=== PATIENT | female | born 1970 | race Caucasian/White ===

== ENCOUNTER 2017-03-03 17:13 | Emergency (ER) | payer OTHER ==
[~2017-03-03] VITALS: Ht 175.3 cm; Wt 89.8 kg
[~2017-03-03 17:13] MED LIST: ATOR20TA PO; CITA40TA13 PO; COZ50 PO; TYL3
[2017-03-03 17:38] VITALS: BP 110/74
--- NOTE | 2017-03-03 18:20 | NUR ---
PATIENT PRESENTS TO ED WITH C/O LOWER ABDOMINAL PAIN 3/10 X 3 WKS WITH NAUSEA AND DIARRHEA; DENIES VOMITING HX; HTN, DEPRESSION, L4,L5 COMPRESSION FX RX; LOSARTAAN ----; SKIN IS PINK/WARM/DRY; AAOX4 WITH EVEN AND STEADY GAIT; LUNGS CLEAR BL; HR EVEN AND REGULAR; PT DENIES ANY FEVER, CP, SOB, OR COUGH AT THIS TIME; PATIENT STATES PAIN OF 3/10 AT THIS TIME; VSS; PATIENT POSITIONED FOR COMFORT; HOB ELEVATED; BEDRAILS UP X2; BED DOWN. ER MD MADE AWARE OF PT STATUS.
--- NOTE | 2017-03-03 19:07 | NUR ---
Pt report given to BRUNO HURTADO. Transfer of care at this time.
--- NOTE | 2017-03-03 19:23 | NUR ---
PT IN BED. VSS. COMFORT NEEDS MET. ER MD NOTIFED OF PT STATUS.
[2017-03-03 20:15] VITALS: BP 124/75
--- NOTE | 2017-03-03 20:15 | NUR ---
Patient discharged with v/s stable. Written and verbal after care instructions given and explained. Patient alert, oriented and verbalized understanding of instructions. Ambulatory with steady gait. All questions addressed prior to discharge. ID band removed. Patient advised to follow up with PMD. Rx of NAPROSYN 500MG given. Patient educated on indication of medication including possible reaction and side effects. Opportunity to ask questions provided and answered.
== END 2017-03-03 20:15 | disposition home or self-care (01) ==
LOC: MED 17:13
DX: R10.30 Lower abdominal pain, unspecified (principal); Z88.1 Allergy status to other antibiotic agents; I10 Essential (primary) hypertension; Z90.89 Acquired absence of other organs; E78.00 Pure hypercholesterolemia, unspecified
CPT/HCPCS: 81002; 81025; 99284